=== PATIENT | male | born 1995 | race African-American/Black ===

== ENCOUNTER 2016-06-20 15:08 | Emergency (ER) | payer OTHER ==
--- NOTE | ~2016-06-20 | EKG ---
PATIENT: GABRIEL MONZON UNIT #: [id number] Ventricular Rate: 57 BPM Atrial Rate: 57 BPM P-R Interval: 154 ms QRS Duration: 92 ms Q-T Interval: 388 ms QTC Calculation(Bezet): 377 ms P [place]: 53 degrees Calculated R [place]: 70 degrees Calculated T [place]: 62 degrees Diagnosis Line: Sinus bradycardia with sinus arrhythmia Diagnosis Line: Early repolarization Normal ECG Diagnosis Line: No previous ECGs available Diagnosis Line: Confirmed by MARY SHERIFF MD ([id number]) on 06/23/2016 Diagnosis Line: 10:19:24 AM INTERPRETING MD: SHARITA VALDIVIA
--- NOTE | ~2016-06-20 | CR63 ---
[facility]. [facility] A Service of [facility] - [place] RADIOLOGY TEXT RESULTS PATIENT: GABRIEL MONZON LOCATION: SED : 95 UNIT #: [id number] AGE: [address]: STANTON KENNY SEX: M ORDER DR: [id number] [place] [id number] E MR#: [id number] Acc #: [id number] NAME: GABRIEL MONZON. : 1995 SEX: M STUDY DATE/TIME: 06/20/2016 16:25 UNIT: SED ROOM: STUDY DESCRIPTION: CR Chest 2 View Attending Physician: Stanton Kenny Ordering Physician: Physician Non-Staff Primary Care Physician: Cesar Childs M.D. MEDICAL IMAGING REPORT This report is preliminary unless electronic signature is present. EXAM PA and lateral chest INDICATION Shortness of breath since 2:30 today. No comparisons. FINDINGS The lungs are well expanded and clear. The heart size is normal. The visualized osseous structures are unremarkable. IMPRESSION Negative chest. Dictated by... Fred Ramires M.D. THIS IS AN ELECTRONICALLY VERIFIED REPORT Fred Ramires M.D. at 06/22/2016 7:24 AM MAURI/waqas TD: 06/20/2016 22:31 JOB #: [id number] MEDICAL IMAGING REPORT Page 1 of 1
[~2016-06-20 15:08] MED LIST: MOTRIN400 MG PO
== END 2016-06-20 17:22 | disposition home or self-care (01) ==
LOC: SED 15:08
DX: G44.209 Tension-type headache, unspecified, not intractable (principal); R06.4 Hyperventilation; F17.210 Nicotine dependence, cigarettes, uncomplicated
CPT/HCPCS: 71020; 93005; 99284